=== PATIENT | male | born 1975 | race Caucasian/White ===

== ENCOUNTER 2020-10-01 23:27 | Emergency (ER) | payer OTHER ==
[~2020-10-01] VITALS: Ht 180.3 cm; Wt 102.1 kg
--- NOTE | 2020-10-02 00:02 | EKG ---
[facility] [address] [facility] [place], [place] [address] Signed Sinus tachycardia Otherwise normal ECG No previous ECGs available Confirmed by BABATUNDE RAYGOZA MD ([id number] on 10/02/2020 12:02:28 AM Electronically Signed By: BABATUNDE RAYGOZA MD 10/02/20 0002 PATIENT NAME: JACE SPEARS Electrocardiogram DATE OF : 79 PHYSICIAN: BABATUNDE RAYGOZA MD REPORT #: [id number] REPORT IS CONFIDENTIAL AND NOT TO BE RELEASED WITHOUT AUTHORIZATION
== END 2020-10-02 00:55 | disposition home or self-care (01) ==
LOC: ED 23:27
DX: R07.89 Other chest pain (principal); M25.511 Pain in right shoulder; V48.5XXA Car driver injured in noncollision transport accident in traffic accident, initial encounter; I10 Essential (primary) hypertension; F17.200 Nicotine dependence, unspecified, uncomplicated
CPT/HCPCS: 71046; 73030; 84484; 93005; 93010; 99284-25